=== PATIENT | female | born 1970 | race Caucasian/White ===

== ENCOUNTER → 2019-02-18 | Outpatient (CLI) | payer BC ==
--- NOTE | 2019-02-20 09:31 | US ---
EXAM DESCRIPTION: Carotid Duplex: ULTRASOUND. CLINICAL HISTORY: 48 years Female OCCLUSION AND STENOSIS OF LEFT CAROTIC ARTERY COMPARISON: None. TECHNIQUE: Transcutaneous scanning utilizing mathews-scale and Doppler modes to evaluate the bilateral carotid systems and vertebral arteries. Percentage of diameter of stenosis or no stenosis recorded will be based upon NASCET criteria. FINDINGS: Peak systolic/end diastolic (CM-Sec) CCA Right 53/21 Left 61/23. ICA Right proximal 37/18, mid 53/23. Left proximal 48/24, Distal 59/25. Vertebral Right 25/8 Left 29/10. ECA (PS Only) Right 66 left 78. ICA/CCA peak systolic ratio: Right 1.0 Left 1.0 ICA/CCA end diastolic ratio: Right 1.1 Left 1.1 Vertebral arteries: antegrade flow. Comments: Minimal spectral broadening distal right ICA and distal left ICA. Left proximal ICA: Area stenosis 29% and diameter stenosis 18%. IMPRESSION: 1. Doppler evaluation of the bilateral carotid systems and vertebral arteries shows no hemodynamically significant stenoses. 2. No significant amount of plaque seen in the carotid arteries bilaterally. Bilateral vertebral arteries showed antegrade-cephalad flow. Electronically signed by: Spencer Tolbert MD 02/19/2019 9:40 AM [employer]
== END ==
LOC: US 11:44
PROVIDERS: ATTEND Nurse Practitioner Family
DX: I65.22 Occlusion and stenosis of left carotid artery (principal)